=== PATIENT | female | born 1955 | race Caucasian/White ===

== ENCOUNTER → 2018-09-15 | Outpatient (REF) | payer BC | LOC: M LAB REF 16:43 | PROVIDERS: ATTEND Nurse Practitioner Adult Health | DX: L72.3 Sebaceous cyst (principal) ==

== ENCOUNTER → 2020-08-03 | Outpatient (CLI) | payer BC ==
--- NOTE | 2020-08-03 13:26 | REP ---
INDICATION: LT SIDE SWELLING PAIN LYMPHNODE. COMPARISON: None. TECHNIQUE: The patient was apparently unable to point to a specific location in the left neck. The general area identified by the patient was scanned on a in the left neck and on the right for comparison. FINDINGS: No adenopathy or mass lesion is observed. There is a left thyroid nodule hypoechoic and solid 7 mm x 7 mm x 4 mm. Scanning on the right for comparison demonstrates a 9 x 8 x 5 mm hypoechoic right thyroid nodule. Otherwise unremarkable. IMPRESSION: No mass or adenopathy is seen. Bilateral subcentimeter thyroid nodules are noted incidentally. If signs and symptoms persist, consider soft tissue neck CT study. Please note that this directed ultrasound was not a dedicated thyroid sonogram. <Electronically signed by Fred Raymond > 08/03/20 [id number]
== END ==
LOC: M RAD 11:56
PROVIDERS: ATTEND Family Medicine
DX: E04.1 Nontoxic single thyroid nodule (principal); R22.1 Localized swelling, mass and lump, neck

== ENCOUNTER → 2020-08-22 | Outpatient (CLI) | payer BC ==
--- NOTE | 2020-08-22 15:42 | REP ---
INDICATION: SHORTNESS OF BREATH ON EXERTION COMPARISON: None. TECHNIQUE: PA and lateral. FINDINGS: The mediastinum and cardiac silhouette are normal. The lung velez are clear and without acute consolidation, effusion, or pneumothorax. The skeletal structures are intact and normal. IMPRESSION: No acute cardiopulmonary process. <Electronically signed by Darnell Shaw > 08/22/20 [id number]
== END ==
LOC: M RAD 15:21
PROVIDERS: ATTEND Physician Assistant Medical
DX: R06.02 Shortness of breath (principal)

== ENCOUNTER → 2021-02-25 | Outpatient (REF) | payer BC ==
[2021-02-25 17:48] LABS: AMYLASE 45 U/L (25-115); LIPASE 146 U/L (73-393)
== END ==
LOC: M LAB REF 16:16
PROVIDERS: ATTEND Family Medicine
DX: R10.11 Right upper quadrant pain (principal)

== ENCOUNTER → 2021-03-13 | Outpatient (CLI) | payer BC, MEDICARE ==
--- NOTE | 2021-03-13 08:30 | REP ---
INDICATION: RUQ ABD PAIN EPIGASTRIC COMPARISON: None. TECHNIQUE: Real time champion scale ultrasound examination using curved array transducer. FINDINGS: Liver and pancreas are normal in contour, size, and echogenicity without focal hepatic or pancreatic lesions identified. The gallbladder is normal and without gallstones, wall thickening, or pericholecystic fluid. No biliary ductal dilatation is appreciated and the common bile duct measures 3.2 mm diameter. Right kidney is normal in reniform shape without hydronephrosis and measures 10.5 x 5.0 x 4.8 cm. No ascites in the visualized right upper quadrant. IMPRESSION: Normal limited right upper quadrant ultrasound <Electronically signed by Darnell Shaw > 03/13/21 [id number]
== END ==
LOC: M RAD 03-04 07:44
PROVIDERS: ATTEND Family Medicine
DX: R10.13 Epigastric pain (principal)

== ENCOUNTER → 2021-09-24 | Outpatient (CLI) | payer MEDICARE ==
[~2021-09-24] MED LIST: GASTROGRAFIN SOLUTION 30ML (Q9963) As Ordered ONE; ISOVUE-370 76% 100ML VIAL As Ordered ONE
== END ==
LOC: M RAD 13:06
PROVIDERS: ATTEND Family Medicine
DX: K76.9 Liver disease, unspecified (principal); R10.11 Right upper quadrant pain
CPT/HCPCS: 74178; Q9963; Q9967

== ENCOUNTER → 2022-07-29 | Outpatient (CLI) | payer MEDICARE ==
[~2022-07-29] MED LIST changes: +E-Z-GAS II EFFERVESCENT PACKET (SODIUM BICARB./CITRIC ACID/SIMETHICONE) As Ordered ONE; +E-Z-HD 98% w/w 340GM SUSP BTL As Ordered ONE; +E-Z-PAQUE 96% w/w SUSP 176GM BTL As Ordered ONE; -GASTROGRAFIN SOLUTION 30ML (Q9963) As Ordered ONE; -ISOVUE-370 76% 100ML VIAL As Ordered ONE
== END ==
LOC: M RAD 08:06
PROVIDERS: ATTEND Specialist
DX: D38.0 Neoplasm of uncertain behavior of larynx (principal); K21.9 Gastro-esophageal reflux disease without esophagitis

== ENCOUNTER → 2023-02-27 | Outpatient (CLI) | payer MEDICARE | LOC: M WHC 11:12 | PROVIDERS: ATTEND Family Medicine | DX: E04.1 Nontoxic single thyroid nodule (principal) ==

== ENCOUNTER → 2023-10-20 | Outpatient (CLI) | payer MEDICARE | LOC: M RAD 09:50 | PROVIDERS: ATTEND Physician Assistant Surgical | DX: E04.1 Nontoxic single thyroid nodule (principal) ==

== ENCOUNTER → 2024-02-26 | Outpatient (CLI) | payer MEDICARE | LOC: M RAD 10:24 | PROVIDERS: ATTEND Student in an Organized Health Care Education/Training Program | DX: M79.641 Pain in right hand (principal); M19.041 Primary osteoarthritis, right hand ==

== ENCOUNTER → 2024-03-08 | Outpatient (CLI) | payer MEDICARE | LOC: M SOG 08:16 | PROVIDERS: ATTEND Physician Assistant | DX: M25.521 Pain in right elbow (principal) ==

== ENCOUNTER → 2024-03-28 | Outpatient (CLI) | payer MEDICARE | LOC: M RAD 07:31 | PROVIDERS: ATTEND Physician Assistant | DX: M79.644 Pain in right finger(s) (principal) ==

== ENCOUNTER 2024-04-06 05:58 | Day surgery (SDC) | payer MEDICARE ==
[~2024-04-06] VITALS: Ht 165.1 cm; Wt 65.0 kg
[~2024-04-06 05:58] MED LIST changes: +COLL1POW XX; +CVS1CHW58 PO; -E-Z-GAS II EFFERVESCENT PACKET (SODIUM BICARB./CITRIC ACID/SIMETHICONE) As Ordered ONE; -E-Z-HD 98% w/w 340GM SUSP BTL As Ordered ONE; -E-Z-PAQUE 96% w/w SUSP 176GM BTL As Ordered ONE; +ELDE350C PO; +FLON1SPR; +MAG100TA PO; +NOXI1TAB PO; +THERTAB52 PO; +VAGI10TA VA
[2024-04-06] MEDS ORDERED: propofoL 200 MG/20 ML VIAL As Ordered ONE (06:25)
[2024-04-06] MEDS ORDERED: ONDANSETRON 4MG 2ML VIAL As Ordered ONE (06:25)
[2024-04-06] MEDS ORDERED: GLYCOPYRROLATE INJ 0.2 MG/ML 2 ML VIAL As Ordered ONE (06:25)
[2024-04-06] MEDS ORDERED: LIDOCAINE 2% 100MG/5ML SDV (FOR ANES.) As Ordered ONE (06:25)
[2024-04-06] MEDS ORDERED: fentaNYL 100 MCG/2 ML INJECTION As Ordered ONE (06:26)
[2024-04-06] MEDS ORDERED: MIDAZOLAM INJ 2MG/2ML VIAL As Ordered ONE (06:27)
[2024-04-06] MEDS ORDERED: LR 1,000 ML IV SCH (06:40)
[2024-04-06] MEDS ORDERED: LIDOCAINE 1% SDV 5ML VIAL PN ONE (07:15)
[2024-04-06] MEDS ORDERED: ROPIvacaine 0.5% 30ML VIAL PN ONE (07:15)
[2024-04-06] MEDS ORDERED: dexAMETHasone 10MG/1ML VIAL PRES.FREE PN ONE (07:15)
[2024-04-06] MEDS: fentaNYL 100 MCG/2 ML INJECTION IV PRN (07:30)
[2024-04-06] MEDS: MIDAZOLAM INJ 2MG/2ML VIAL IV PRN (07:30)
[2024-04-06] MEDS: ceFAZolin 2 GM/D5W 50 ML IV BAG As Ordered ONE (07:56)
[2024-04-06] MEDS ORDERED: ePHEDrine SULFATE 25 MG/5 ML(5MG/ML) SYRINGE As Ordered ONE (07:58)
[2024-04-06] MEDS ORDERED: PHENYLephrine 500MCG 5ML (100MCG/ML) SYRINGE As Ordered ONE (08:18)
[2024-04-06] MEDS: BACITRACIN OINTMENT 30GM TUBE As Ordered ONE (08:44)
[2024-04-06] MEDS ORDERED: PERCOCET PO (09:10)
[2024-04-06 09:47] VITALS: BP 124/68; TEMP 97.4; O2SAT 99
== END 2024-04-06 10:08 | disposition home or self-care (01) ==
LOC: M SDC 05:58
PROVIDERS: ATTEND Orthopaedic Surgery Hand Surgery
DX: S63.601S Unspecified sprain of right thumb, sequela (principal); Z88.8 Allergy status to other drugs, medicaments and biological substances; Z79.899 Other long term (current) drug therapy
CPT/HCPCS: 26540; 76000; 93005; C1713; J0665; J0690; J1100; J1596; J2250; J2371; J2405; J3010

== ENCOUNTER → 2024-05-05 | Outpatient (CLI) | payer MEDICARE ==
[~2024-05-05] MED LIST changes: +PERCOCET PO
== END ==
LOC: M SOG 07:52
PROVIDERS: ATTEND Physician Assistant
DX: M25.641 Stiffness of right hand, not elsewhere classified (principal); M18.11 Unilateral primary osteoarthritis of first carpometacarpal joint, right hand

== ENCOUNTER → 2024-10-04 | Outpatient (CLI) | payer MEDICARE | LOC: M WHC 10:34 | PROVIDERS: ATTEND Physician Assistant Surgical | DX: E04.1 Nontoxic single thyroid nodule (principal) ==